=== PATIENT | male | born 1960 | race Caucasian/White ===

== ENCOUNTER 2017-01-12 08:51 | Emergency (ER) | payer OTHER ==
[~2017-01-12] VITALS: Ht 188 cm; Wt 136.1 kg
[~2017-01-12 08:51] MED LIST: SMV20T
--- NOTE | 2017-01-12 10:30 | Diagnostic Imaging Report ---
INDICATION: Left elbow injury falling off of a semitruck. FINDINGS: 3 views of left elbow show no fracture, dislocation or pathologic effusion. IMPRESSION: Negative left elbow. Dictated by: Dictated on workstation # [id number]
--- NOTE | 2017-01-12 10:42 | ED Upper Extremity ---
General Chief Complaint: Upper Extremity Stated Complaint: LT ELBOW INJ Nursing Triage Note: Pt reports he was standing on bumper of truck and fell off, landing on L elbow. Pt reports hearing a "crack" and now has limited movement to L elbow. Nursing Sepsis Screen: No Definite Risk Source: patient Exam Limitations: no limitations History of Present Illness Time seen by provider: 10:43 Initial Comments Patient was standing on the bumper of his truck when he fell off landing in the left elbow and then heard a crack. He now has pain and limited range of motion of the left elbow. Method of Injury: fell Modifying Factors: Worse With Movement Allergies and Home Medications Allergies Coded Allergies: No Known Allergies (Verified Allergy, Unknown, 08/21/06) Home Medications No Active Prescriptions or Reported Meds Constitutional: no symptoms reported EENTM: see HPI Respiratory: no symptoms reported Cardiovascular: no symptoms reported Genitourinary: no symptoms reported Musculoskeletal: see HPI Skin: no symptoms reported Psychiatric/Neurological: No Symptoms Reported Past Wkfrnsi-Iqsepl-Tjseuk Hx Patient Social History Alcohol Use: Denies Use Recreational Drug Use: No Smoking Status: Never a Smoker Recent Foreign Travel: No Contact w/Someone Who Travel: No Recent Infectious Disease Expo: No Recent Hopitalizations: No Seasonal Allergies Seasonal Allergies: No Surgeries Surgeries: Gallbladder Respiratory Hx Respiratory Disorders: No Cardiovascular Hx Cardiac Disorders: Yes Cardiac Disorders: High Cholesterol Neurological Hx Neurological Disorders: No Reproductive System Hx Reproductive Disorders: No Genitourinary Hx Genitourinary Disorders: No Gastrointestinal Hx Gastrointestinal Disorders: No Musculoskeletal Hx Musculoskeletal Disorders: No Endocrine Hx Endocrine Disorders: No HEENT HX ENT Disorders: No Psychosocial Hx Psychiatric Problems: No Blood Transfusions Hx Blood Disorders: No Physical Exam Vital Signs Vital Sign - Last 12Hours 01/12/17 09:54 Temp 97.7 Pulse 65 Resp 18 B/P (MAP) 129/89 Pulse Ox 96 O2 Delivery Room Air Capillary Refill : Less Than 3 Seconds General Appearance: WD/WN, no apparent distress HEENT: PERRL/EOMI, normal ENT inspection Neck: non-tender, full range of motion Respiratory: no respiratory distress, no accessory muscle use Gastrointestinal: normal bowel sounds, non tender, soft Shoulder: normal inspection, non-tender Elbow/Forearm: Left, limited ROM, pain, soft tissue tenderness, swelling ( significant swelling around the dorsal and ulnar side of the elbow) Wrist: Yes normal inspection, Yes non-tender, Yes no evidence of injury Hand: normal inspection, non-tender, no evidence of injury Neurologic/Tendon: normal sensation, normal motor functions, normal tendon functions Neurologic/Psychiatric: no motor/sensory deficits, alert Skin: normal color, warm/dry Progress/Results/Core Measures Results/Orders Vital Signs/I&O Vital Sign - Last 12Hours 01/12/17 09:54 Temp 97.7 Pulse 65 Resp 18 B/P (MAP) 129/89 Pulse Ox 96 O2 Delivery Room Air Blood Pressure Mean: 102 Diagnostic Imaging Diagonstic Imaging: Xray Comments NAME: IN[facility] REC#: [id number] PT STATUS: REG ER : 1960 PHYSICIAN: FABRIZIO MCNAMARA MD ADMIT DATE: 01/12/17/ER Draft Date of Exam:01/12/17 ELBOW, LEFT, 3 VIEWS INDICATION: Left elbow injury falling off of a semitruck. FINDINGS: 3 views of left elbow show no fracture, dislocation or pathologic effusion. IMPRESSION: Negative left elbow. Dictated on workstation # [id number] Dict: 01/12/17 1025 Trans: 01/12/17 1030 [id number] Interpreted by: ANDREIA CARROLL Electronically signed by: Departure Impression Impression: Primary Impression: Elbow contusion Disposition: 01 HOME, SELF-CARE Condition: Stable Departure-Patient Inst. Decision time for Depature: 10:44 Referrals: DAVONTE BEAR MD (PCP/Family) Primary Care Physician Patient Instructions: Contusion (DC) Add. Discharge Instructions: 1. Return to ER for any concerns 2. See your doctor next week if you have persistent pain All discharge instructions reviewed with patient and/or family. Voiced understanding. Scripts Hydrocodone/Acetaminophen ([place] 5-325 Tablet) 1 Each Tablet 1 EACH PO Q4H Y for PAIN-MODERATE, #14 TAB Prov: ROBERT RANKIN APRN 01/12/17 ROBERT RANKIN APRN Jan 12, 2017 10:42
[2017-01-12] MEDS ORDERED: HYDR-757 PO (10:51)
[2017-01-12 11:03] VITALS: BP 129/89
--- OUTSIDE RECORDS SUMMARY | 2017-01-12 11:58 | XMS REPORT | Continuity of Care Document ---
Demographics Preferred Language Unknown Marital Status Unknown Holiness Affiliation Unknown Race Unknown Ethnic Group Unknown Author Author [facility] Address Unknown Phone Unavailable Allergies Active Description Code Type Severity Reaction Onset Reported/Identified Relationship to Patient Clinical Status Yes NKANo Known Allergies NKA Miscellaneous Allergy Unknown N/ A 08/21/2006 Medications Problems Date Dx Coded Attending Type Code Diagnosis Diagnosed By 09/11/2015 HARRIET RANDHAWA DO Ot G47.33 OBSTRUCTIVE SLEEP APNEA (ADULT) (PEDIATR 09/16/2015 HARRIET RANDHAWA DO Ot G47.33 OBSTRUCTIVE SLEEP APNEA (ADULT) (PEDIATR Procedures Results Encounters ACCT No. Visit Date/Time Discharge Status Pt. Type Provider Facility Loc./Unit Complaint [id number] 06/11/2012 21:34:27 RECURRING [id number] 09/11/2015 15:07:00 2015 16:00:00 DIS Outpatient HARRIET RANDHAWA DO [facility] SLEEP
== END 2017-01-12 11:03 | disposition home or self-care (01) ==
LOC: EDUNIT# 08:51 → ER 08:55
DX: S50.02XA Contusion of left elbow, initial encounter (principal); E78.00 Pure hypercholesterolemia, unspecified; V58.6XXA Passenger in pick-up truck or van injured in noncollision transport accident in traffic accident, initial encounter
CPT/HCPCS: 73080; 99282

== ENCOUNTER → 2019-12-24 | Outpatient (CLI) | payer OTHER ==
[~2019-12-24] MED LIST changes: +HYDR-4226 PO
[2019-12-24 08:02] LABS: BUN/CREATININE RATIO 13; CREATININE SERUM 1.02 MG/DL (0.60-1.30); GFR ESTIMATED > 60
== END ==
LOC: RAD 07:09 → LAB 07:30
PROVIDERS: ATTEND Nurse Practitioner Family
DX: Z71.89 Other specified counseling (principal)
CPT/HCPCS: 36415; 82565; 84520

== ENCOUNTER 2020-10-12 05:33 | Outpatient (RCR) | payer OTHER ==
[2020-10-07 11:26] LABS: BASOPHILS # (AUTO) 0.1 10^3/uL (0.0-0.1); BASOPHILS % (AUTO) 0 % (0-10); EOSINOPHILS % (AUTO) 0 % (0-10); HEMATOCRIT 50 % (40-54); HEMOGLOBIN 16.9 g/dL (13.3-17.7); LYMPHOCYTES # (AUTO) 2.8 10^3/uL (1.0-4.0); LYMPHOCYTES % (AUTO) 25 % (12-44); MEAN CORPUSCULAR HEMOGLOBIN 32 pg (25-34); MEAN CORPUSCULAR HGB CONC 34 g/dL (32-36); MEAN CORPUSCULAR VOLUME 94 fL (80-99); MEAN PLATELET VOLUME 11.3 fL (9.0-12.2); MONOCYTES # (AUTO) 0.9 10^3/uL (0.0-1.0); MONOCYTES % (AUTO) 8 % (0-12); NEUTROPHILS # (AUTO) 7.5 10^3/uL (1.8-7.8); NEUTROPHILS % (AUTO) 66 % (42-75); PLATELET COUNT 211 10^3/uL (130-400); WHITE BLOOD COUNT 11.3 10^3/uL (4.3-11.0)
[2020-10-07 11:48] LABS: BUN/CREATININE RATIO 15; CALCIUM 9.1 MG/DL (8.5-10.1); CARBON DIOXIDE 24 MMOL/L (21-32); CHLORIDE 109 MMOL/L (98-107); CREATININE SERUM 0.87 MG/DL (0.60-1.30); GFR ESTIMATED > 60; GLUCOSE 88 MG/DL (70-105); POTASSIUM 3.9 MMOL/L (3.6-5.0); SODIUM 139 MMOL/L (135-145)
[~2020-10-12] VITALS: Ht 188 cm; Wt 145.6 kg
[~2020-10-12 05:33] MED LIST changes: +KRIL1CAP PO; +MULT-1056 PO
[2020-10-15] MEDS ORDERED: ACHD5005 PO ×2 (08:57)
[2020-10-15] MEDS ORDERED: AMOX-355 PO ×2 (08:57)
== END 2020-10-15 08:44 | disposition home or self-care (01) ==
LOC: PREOP 05:33
PROVIDERS: ATTEND Otolaryngology Otolaryngology/Facial Plastic Surgery
DX: Z01.812 Encounter for preprocedural laboratory examination (principal); Z01.810 Encounter for preprocedural cardiovascular examination; J34.2 Deviated nasal septum; J34.89 Other specified disorders of nose and nasal sinuses; J34.3 Hypertrophy of nasal turbinates
CPT/HCPCS: 36415; 80048; 85025; 87081; 87635; 93005

== ENCOUNTER 2020-10-15 05:53 | Day surgery (SDC) | payer OTHER ==
[2020-10-15] VITALS (7 sets, daily range): BP systolic 125–140; BP diastolic 75–88
[~2020-10-15] VITALS: Ht 188 cm; Wt 145.6 kg
[2020-10-15] MEDS ORDERED: LACTATED RINGERS 1,000 ML IV PRN (06:15)
[2020-10-15] MEDS ORDERED: PHENYLEPHRINE 0.5% NASAL SPR (NEO-SYNEPHRINE) REG ONE (06:37)
[2020-10-15] MEDS ORDERED: LIDOCAINE/EPI 1%-1:100,000 (XYLOCAINE) 20ML ONE (06:37)
[2020-10-15] MEDS ORDERED: COCAINE HCL 4% 2 ML SYR ONE (06:37)
[2020-10-15] MEDS ORDERED: fentaNYL INJ 100 MCG/2 ML AMP ONE (06:48)
[2020-10-15] MEDS ORDERED: MIDAZOLAM 2 MG/2 ML (VERSED) VIAL ONE (06:48)
--- NOTE | 2020-10-15 07:09 | Progress Note-Pre Operative ---
Pre-Operative Progress Note H&P Reviewed The H&P was reviewed, patient examined and no changes noted. Date Seen by Provider: October 15, 2020 Time Seen by Provider: : Date H&P Reviewed: October 15, 2020 Time H&P Reviewed: :30 Pre-Operative Diagnosis: Deviated Nasal Septum, Bilat Hyper with MARIBEL Rangel MD October 15, 2020 07:09
[2020-10-15] MEDS ORDERED: BSS 15 ML ONE (07:18)
[2020-10-15] MEDS ORDERED: LIDOCAINE PF 2% 5 ML (XYLOCAINE) VIAL ONE (07:50)
[2020-10-15] MEDS ORDERED: ROCURONIUM 10 MG/ML 5 ML SYRINGE IV ONE (07:50)
[2020-10-15] MEDS ORDERED: proPOfol 200 MG/20 ML (DIPRIVAN) VIAL IV ONE (07:50)
[2020-10-15] MEDS ORDERED: GLYCOPYRROLATE 0.2 MG/ML (ROBINUL) 2 ML VIAL ONE (07:50)
[2020-10-15] MEDS ORDERED: NEOSTIGMINE 3 MG/3 ML VIAL ONE (07:50)
[2020-10-15] MEDS ORDERED: SEVOFLURANE (ULTANE) 15 ML INHAL SOLN ONE (07:50)
[2020-10-15] MEDS ORDERED: DESFLURANE (SUPRANE) 15 ML INHAL SOLN ONE (07:50)
[2020-10-15] MEDS ORDERED: ONDANSETRON 4 MG/2 ML (SDV) Z0FRAN ONE (07:50)
--- NOTE | 2020-10-15 08:06 | Progress Note-Post Operative ---
Post-Operative Progess Note Surgeon (s)/Road Crew Member (s) Surgeon MARIBEL CAPPS MD Road Crew Member n/a Pre-Operative Diagnosis Deviated Nasal Septum, Bilat Hyper with UAo Post-Operative Diagnosis same Post-Op Procedure Note Date of Procedure: October 15, 2020 Name of Procedure Performed: Nasal Septoplasty, Bilateral Reduction of Inferior Turbinates Description & Findings Description and Findings: n/a Anesthesia Type get Estimated Blood Loss minimal Packing none. Specimen(s) collected/removed nasal septum MARIBEL CAPPS MD October 15, 2020 08:06
[2020-10-15] MEDS ORDERED: PROMETHAZINE INJ 25 MG/ML (PHENERGAN) AMP IVP PRN (08:15)
[2020-10-15] MEDS ORDERED: ACETAMINOPHEN 325 MG TABLET PO PRN (08:15)
[2020-10-15] MEDS ORDERED: D5 1/2 NS W/KCL 20 MEQ/L 1,000 ML IV SCH (08:15)
[2020-10-15] MEDS ORDERED: HYDROcodone/APAP 5 MG/325 MG (LORTAB) TAB PO PRN (08:15)
[2020-10-15] MEDS ORDERED: ACHD5005 PO ×2 (08:57)
[2020-10-15] MEDS ORDERED: AMOX-355 PO ×2 (08:57)
--- NOTE | 2020-10-16 07:33 | Anesthesia-General Post-Op ---
General Significant Intra-Op Events Notes late entry 10/15/20 @ 1000 Patient Condition Mental Status/LOC: Same as Preop Cardiovascular: Satisfactory Nausea/Vomiting: Absent Respiratory: Satisfactory Pain: Controlled Complications: Absent Post Op Complications Complications None Follow Up Care/Instructions Patient Instructions None needed. Anesthesia/Patient Condition Patient Condition Patient is doing well, no complaints, stable vital signs, no apparent adverse anesthesia problems. No complications reported per nursing. SHAN AMAYA CRNA October 16, 2020 07:33
== END 2020-10-15 09:40 | disposition home or self-care (01) ==
LOC: SDC 05:53
PROVIDERS: ATTEND Otolaryngology Otolaryngology/Facial Plastic Surgery
DX: J34.2 Deviated nasal septum (principal); J34.3 Hypertrophy of nasal turbinates; J34.89 Other specified disorders of nose and nasal sinuses; R09.81 Nasal congestion; G47.33 Obstructive sleep apnea (adult) (pediatric); E66.9 Obesity, unspecified; J30.9 Allergic rhinitis, unspecified; Z68.41 Body mass index [BMI] 40.0-44.9, adult; Z98.890 Other specified postprocedural states